=== PATIENT | female | born 1970 | race Two or more races ===

== ENCOUNTER 2021-07-20 14:21 | Emergency (ER) | payer BC, OTHER ==
[~2021-07-20] VITALS: Ht 167.6 cm; Wt 167.4 kg
[2021-07-20 15:14] VITALS: BP 104/40
[2021-07-20] MEDS ORDERED: traMADol HCL 50 MG TAB PO ONE (17:00)
== END 2021-07-20 17:27 | disposition home or self-care (01) ==
LOC: EDBD 14:21 → ER 14:21
DX: S82.832A Other fracture of upper and lower end of left fibula, initial encounter for closed fracture (principal); E11.9 Type 2 diabetes mellitus without complications; I10 Essential (primary) hypertension; W01.0XXA Fall on same level from slipping, tripping and stumbling without subsequent striking against object, initial encounter; Y93.89 Activity, other specified; Y92.89 Other specified places as the place of occurrence of the external cause; Y99.8 Other external cause status
CPT/HCPCS: 29515; 73590; 73610; 73630

== ENCOUNTER 2021-07-26 20:59 | Emergency (ER) | payer BC ==
[~2021-07-26] VITALS: Ht 167.6 cm; Wt 167.4 kg
[2021-07-27 02:15] VITALS: BP 131/58
== END 2021-07-27 05:31 | disposition home or self-care (01) ==
LOC: EDUNIT# 20:59 → ER 20:59 → EDBD 20:59 → ER 07-27 05:31
DX: S82.832A Other fracture of upper and lower end of left fibula, initial encounter for closed fracture (principal); I10 Essential (primary) hypertension; E11.9 Type 2 diabetes mellitus without complications; E03.9 Hypothyroidism, unspecified; Z88.8 Allergy status to other drugs, medicaments and biological substances; W18.39XA Other fall on same level, initial encounter; Y93.89 Activity, other specified; Y92.89 Other specified places as the place of occurrence of the external cause; Y99.8 Other external cause status
CPT/HCPCS: 73590